=== PATIENT | male | born 1980 | race Hispanic/Latino ===

== ENCOUNTER 2018-07-13 11:14 | Inpatient (IN) | payer BC ==
--- NOTE | 2018-07-13 11:19 | ED PDOC ---
Arrival/HPI - General Time Seen by Provider: 07/13/18 11:16 Historian: Patient - History of Present Illness Narrative History of Present Illness (Text): 07/13/18 11:35 A 38 year old male, whose past medical history includes depression, presents to the emergency department for medical evaluation. Patient has been accepted for psychiatric admission by Dr. Hdez for anxiety. Patient denies any physical/symptomatic complaints. 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 Patient denies SI, HI, hallucinations and has no complaints at this time. Past Medical History - Provider Review Nursing Documentation Reviewed: Yes Family/Social History - Physician Review Nursing Documentation Reviewed: Yes Family/Social History: No Known Family HX Allergies/Home Meds Allergies/Adverse Reactions: Allergies No Known Allergies Allergy (Verified 07/13/18 11:36) Review of Systems - Physician Review All systems were reviewed & negative as marked: Yes - Review of Systems Constitutional: absent: Fevers, Night Sweats Respiratory: absent: SOB, Cough Cardiovascular: absent: Chest Pain, Palpitations Gastrointestinal: absent: Abdominal Pain, Diarrhea, Nausea, Vomiting Neurological: absent: Headache, Dizziness Physical Exam - Physical Exam Narrative Physical Exam (Text): Gen: NAD, cooperative, well appearing, non-toxic. Head: NCAT. HEENT: EYES: PERRL, EOMI, conjunctiva clear, MOUTH: moist MM, posterior pharynx without erythema or exudate, uvula midline. CV: (+) S1S2, RRR, no M/G/R LUNGS: CTA B/L, No W/R/R, good air movement Abd: Soft, NTTP, no guarding, rebound or rigidity. Neuro: AAO x 3, GCS 15, CN 2-12 intact, motor and sensory grossly intact, 5/5 muscle strength B/L UE's and LE's. ext: no cyanosis or edema Vital Signs Reviewed: Yes Temperature: Afebrile Blood Pressure: Normal Pulse: Regular Respiratory Rate: Normal Appearance: Positive for: Well-Appearing, Non-Toxic, Comfortable Pain Distress: None Mental Status: Positive for: Alert and Oriented X 3 Medical Decision Making ED Course and Treatment: 07/13/18 11:36 Impression: 38 year old male brought in to be medically cleared for psychiatric admission. Plan: --Admit Progress Notes: - Scribe Statement The provider has reviewed the documentation as recorded by the Maite Barr Provider Scribe Attestation: All medical record entries made by the Maite were at my direction and personally dictated by me. I have reviewed the chart and agree that the record accurately reflects my personal performance of the history, physical exam, medical decision making, and the department course for this patient. I have also personally directed, reviewed, and agree with the discharge instructions and disposition. Disposition/Present on Arrival - Present on Arrival Any Indicators Present on Arrival: Yes History of DVT/PE: No History of Uncontrolled Diabetes: No Urinary Catheter: No History of Decub. Ulcer: No History Surgical Site Infection Following: None - Disposition Have Diagnosis and Disposition been Completed?: Yes Diagnosis: Anxiety Disposition: HOSPITALIZED Disposition Time: 11:45 Patient Plan: Admission Condition: STABLE
[2018-07-13 11:32] VITALS: BMI 36.5
[2018-07-13 16:52] VITALS: O2SAT 100
[2018-07-13] MEDS ORDERED: Alum-Mag Hydrox-Simethicone Susp (30 mL) PO PRN (16:54)
[2018-07-13] MEDS ORDERED: Magnesium Hydroxide Susp 30 ml UD PO PRN (16:54)
--- NOTE | 2018-07-14 05:44 | PCM.BM ---
<Hossein Coffey - Last Filed: 07/14/18 05:42> Treatment Plan Problems - Problems identified on initial assessmt Anxiety Date Initiated: 07/13/18 Time Initiated: 22:40 Assessment reference: NA Status: Active Priority: 1 Altered sleep pattern Date Initiated: 07/13/18 Time Initiated: 22:50 Assessment reference: NA Status: Active Treatment assets and liabiliti Patient Assests: ADL independent, good support system, good interpersonal skills Patient Liabilities: relationship conflicts - Milieu Protocol Maintain good personal hygiene: daily Encourage regular showers, daily Remind patient to perform daily oral care, daily Assist patient to perform ADL's Conduct patient checks and document Observation sheet: Q15 minutes Maintain personal safety: daily Educate patient to report safety concerns to staff, daily Monitor environment for contraband/sharps Medication safety: Monitor for expected outcome, potential side effects: daily, Assess barriers to learning: daily, Assess readiness for medication education: daily Family Contact Family involvement: Family/SO is involved Family contact: Patient agrees to contact, Family has been contacted by patient Family contact name: Maria Luisa [phone] - Goals for Treatment Patient goals for treatment: To help me eliminate my anxiety Discharge/Continuing Care - Education Needs Education Needs: Patient Medication, Patient Coping Skills - Discharge Discharge Criteria: Normal sleep pattern, Ability to care for self <Everett Hdez - Last Filed: 07/14/18 11:46> - Diagnosis (1) Anxiety Status: Acute Interventions: * group, milieu and supportive tx * Appreciate f/u by Dr. Caceres/Dr. Mcmullen on 07/14/18 * Paxil 10 mg po HS for anxiety symptoms * Klonopin 1 mg po AMHS for anxiety * Sonata 10 mg HS prn: insomnia * Lamictal 100 mg po bid for mood control 07/14/18 11:46 <Shakira Sagastume - Last Filed: 07/17/18 16:09> Family Contact Family involvement: Family/SO is involved Family contact: Patient agrees to contact - Outside Agency [facility] Care involvment: Information-sharing Agency contact name: [facility]
[2018-07-14 07:50] LABS: BASO # 0.04 K/mm3 (0.0-2.0); BASO % 0.5 % (0.0-3.0); EOS # 0.3 (0.0-0.7); EOS % 3.1 % (1.5-5.0); HEMOGLOBIN 15.9 g/dL (14.0-18.0); LYMPH # 2.7 (1.2-3.4); LYMPH % 33.8 % (22.0-35.0); MEAN CELL VOLUME 87.3 fl (80.0-105.0); MEAN CORPUSCULAR HEMOGLOBIN 29.3 pg (25.0-35.0); MEAN CORPUSCULAR HGB CONC 33.6 g/dl (31.0-37.0); MONO # 0.7 (0.1-0.6); MONO % 8.2 % (1.0-6.0); RBC 5.42 10^6/uL (3.5-6.1); RED CELL DISTRIBUTION WIDTH 13.2 % (11.5-14.5)
[2018-07-14 08:01] LABS: ALB/GLOB RATIO 1.3 (1.1-1.8); ALBUMIN 4.4 g/dL (3.0-4.8); ALT/SGPT 21 U/L (7-56); AST/SGOT 28 U/L (17-59); BLOOD UREA NITROGEN 22 mg/dL (7-21); CALCIUM 9.7 mg/dL (8.4-10.5); GFR NON-AFRICAN AMERICAN > 60; GLUCOSE,FASTING 86 mg/dL (65-110); HDL CHOLESTEROL 42 mg/dL (29-60)
[2018-07-14 08:11] LABS: LDL CHOLESTEROL 123 mg/dL (0-129)
[2018-07-14 08:18] LABS: FREE T4 0.95 ng/dL (0.78-2.19)
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
--- NOTE | 2018-07-14 20:37 | CARD ---
APPROVED REPORT Date of service: 07/14/2018 EKG Measurement Heart [id number] <Conclusion> Normal sinus rhythm Leftward axis Normal ECG
--- NOTE | 2018-07-15 16:32 | PCM.PYCHPN ---
Psychiatric Progress Note - Psychiatric Progress Note Patient seen today, length of contact: 30 minutes Patient Chief Complaint: "medications are very helpful..." Problems Identified/Issues Discussed: current symptoms, meds risk, benefits, alternatives, previous psychiatric as well as medical history. Medical Problems: Patient denied any major medical issues Diagnostic Results: 07/14/18 07:30 07/14/18 07:32 Lab Results 07/14/18 07:32: Free T4 0.95, TSH 3rd Generation 1.85 07/14/18 07:32: Sodium 142, Potassium 4.1, Chloride 104, Carbon Dioxide 26, Anion Gap 16, BUN 22 H, Creatinine 1.0, Est GFR ( Amer) > 60, Est GFR (Non-Af Amer) > 60, Random Glucose 86, Fasting Glucose 86, Calcium 9.7, Total Bilirubin 0.6, AST 28, ALT 21, Alkaline Phosphatase 82, Total Protein 7.7, Albumin 4.4, Globulin 3.4, Albumin/Globulin Ratio 1.3, Triglycerides 78, Cholesterol 190, LDL Cholesterol Direct 123, HDL Cholesterol 42 07/14/18 07:32: RPR Nonreactive 07/14/18 07:32: Hemoglobin A1c 5.6 07/14/18 07:30: WBC 8.0, RBC 5.42, Hgb 15.9, Hct 47.3, MCV 87.3, MCH 29.3, MCHC 33.6, RDW 13.2, Plt Count 280, MPV 9.0, Neut % (Auto) 54.4, Lymph % (Auto) 33.8, [place] % (Auto) 8.2 H, Eos % (Auto) 3.1, Baso % (Auto) 0.5, Lymph # (Auto) 2.7, [place] # (Auto) 0.7 H, Eos # (Auto) 0.3, Baso # (Auto) 0.04, Absolute Neuts (auto) 4.32 Vital Signs Temp Pulse Resp BP Pulse Ox 07/15/18 07:22 97.6 F 78 20 121/68 07/14/18 16:26 84 114/74 07/14/18 07:00 97.5 F L 96 H 20 120/75 07/14/18 06:57 97.5 F L 96 H 20 120/75 07/14/18 04:41 16 07/13/18 16:50 98.1 F 85 18 130/89 100 07/13/18 15:12 98.7 F 79 18 120/76 99 07/13/18 11:30 98.2 F 81 18 117/81 98 DSM 5 Symptoms Update: as per 's report Patient is a 38 year old male with history of anxiety including panic disorder, no prior admissions, in outpatient therapy and medication management at a [facility] and [facility] who was transferred from [facility] after he presented to the ER via [facility] for palpitations and panic symptoms. Patient requested psychiatric evaluation because he felt that current prescribed medications are not helping his anxiety. Patient reported poor functioning and agreed to voluntary admission for evaluation and treatment of anxiety. Patient was seen and examined the treatment team meeting, patient presented with over for the speech, reported that she feels better, reported that his medications well, patient gave permission to talk to his family. Patient submitted 48-hour notice yesterday because patient doesn't feel he needs to be in a locked unit. Patient denies any depression, SI or AVH and presents as logical and coherent. Feels medications prescribed on the unit have been beneficial and denies any new side effects, discomfort or pain. As per nursing report pt does not exhibit any agitated or aggressive behavior. Impression: DSM 5 Diagnosis: MICHELLE Panic Disorder r/o Substance Induced Anxiety (UDS +opiates and patient reports "using adderall") Medication Change: Yes (Paxil increased) Medical Record Reviewed: Yes Consults ordered or reviewed: Medical consult appreciated, please see notes for more information. Mental Status Examination - Cognitive Function Orientation: Person, Place, Situation Memory: Intact Attention: Poor (improving) Concentration: Poor (improving) Association: WNL Fund of Knowledge: WNL - Mood Mood: Anxious - Affect Affect: Broad - Formal Thought Process Formal Thought Process: No Impairment - Suicidal Ideation Suicidal Ideation: No - Homicidal Ideation Homicidal Ideation: No Goal/Treatment Plan - Goal/Treatment Plan Need for Continued Stay: Remain at risks for inpatient hospitalization, Severe depression anxiety, Discharge may exacerbated symptoms, Severe functional impairment Progress Toward Problem(s) and Goals/Treatment Plan: group, milieu and supportive tx * Appreciate f/u by Dr. Caceres/Dr. Mcmullen on 07/14/18 * Paxil 20 mg po HS for anxiety symptoms * Klonopin 1 mg po AMHS for anxiety * Sonata 10 mg HS prn: insomnia * Lamictal 100 mg po bid for mood control * Family involvement Follow up on labs Will monitor closely Pt was educated about risk/benefits and alternatives of medications, coping strategies (safety plan, suicide prevention), relapse prevention, importance of follow up with psychiatrist and therapist, stay away from drugs/alcohol/smoking Patient submitted 48-hour notice yesterday, most likely this technical writer will discharge patient tomorrow after collateral information will be obtained from the family. Estimated Date of D/C: 07/16/18
[2018-07-16 07:28] VITALS: BP 110/65; PULSE 76; RESP 18; TEMP 97.9
--- NOTE | 2018-07-16 15:51 | PCM.PYCHDC ---
Mental Status Examination - Mental Status Examination Orientation: Person, Place, Situation, Time Memory: Intact Mood: Neutral Affect: Constricted (but reactive, mood congruent) Attention: WNL Concentration: WNL Association: WNL Fund of Knowledge: WNL Formal Thought Process: No Impairment Description of patient's judgement and insight: good insight and judgment Psychotic Thoughts and Behaviors: denied psychotic symptoms and does not present to be psychotic. Suicidal Ideation: No Current Homicidal Ideation?: No Plan: pt adamantly denied any intent or plan to harm self or others Discharge Summary - Discharge Note Reason for Hospitalization: uncontrolled anxiety Psychiatric History (includes Medical, Family, Personal Hx): see HPI Laboratory Data: 07/14/18 07:30 07/14/18 07:32 Lab Results 07/14/18 07:32: Free T4 0.95, TSH 3rd Generation 1.85 07/14/18 07:32: Sodium 142, Potassium 4.1, Chloride 104, Carbon Dioxide 26, Anion Gap 16, BUN 22 H, Creatinine 1.0, Est GFR ( Amer) > 60, Est GFR (Non-Af Amer) > 60, Random Glucose 86, Fasting Glucose 86, Calcium 9.7, Total Bilirubin 0.6, AST 28, ALT 21, Alkaline Phosphatase 82, Total Protein 7.7, Albumin 4.4, Globulin 3.4, Albumin/Globulin Ratio 1.3, Triglycerides 78, Cholesterol 190, LDL Cholesterol Direct 123, HDL Cholesterol 42 07/14/18 07:32: RPR Nonreactive 07/14/18 07:32: Hemoglobin A1c 5.6 07/14/18 07:30: WBC 8.0, RBC 5.42, Hgb 15.9, Hct 47.3, MCV 87.3, MCH 29.3, MCHC 33.6, RDW 13.2, Plt Count 280, MPV 9.0, Neut % (Auto) 54.4, Lymph % (Auto) 33.8, [place] % (Auto) 8.2 H, Eos % (Auto) 3.1, Baso % (Auto) 0.5, Lymph # (Auto) 2.7, [place] # (Auto) 0.7 H, Eos # (Auto) 0.3, Baso # (Auto) 0.04, Absolute Neuts (auto) 4.32 Vital Signs Temp Pulse Resp BP Pulse Ox 07/16/18 07:00 97.9 F 76 18 110/65 07/15/18 16:00 84 117/71 07/15/18 07:22 97.6 F 78 20 121/68 07/14/18 16:26 84 114/74 07/14/18 07:00 97.5 F L 96 H 20 120/75 07/14/18 06:57 97.5 F L 96 H 20 120/75 07/14/18 04:41 16 07/13/18 16:50 98.1 F 85 18 130/89 100 07/13/18 15:12 98.7 F 79 18 120/76 99 07/13/18 11:30 98.2 F 81 18 117/81 98 Consultations:: List each consultation separately and include: 1. Reason for request. 2. Findings. 3. Follow-up Consultations: Medical consult appreciated, please see notes for more information. Summary of Hospital Course include:: 1. Description of specific treatment plan utilized for patients during their course of treatmen. 2. Summarize the time- course for resolution of acute symptoms and/or regressed behaviors. 3. Describe issues identified and worked on during hospitalization. 4. Describe medication utilized. 5. Describe medical problems identified and treated. 6. Reassessment of suicide risk Summary of Hospital Course: as per 's report at the time of admission: Patient is a 38 year old male with history of anxiety including panic disorder, no prior admissions, in outpatient therapy and medication management at a [facility] and [facility] who was transferred from [facility] after he presented to the ER via [facility] for palpitations and panic symptoms. Patient requested psychiatric evaluation because he felt that current prescribed medications are not helping his anxiety. Patient reported poor functioning and agreed to voluntary admission for evaluation and treatment of anxiety. 07/16/18: Patient was seen and examined the treatment team meeting by this story writer, patient presented with over for the speech, reported that she feels better, reported that his medications well, patient gave permission to talk to his family. Patient submitted 48-hour notice yesterday because patient doesn't feel he needs to be in a locked unit. Patient denies any depression, SI or AVH and presents as logical and coherent. Feels medications prescribed on the unit have been beneficial and denies any new side effects, discomfort or pain. As per nursing report pt does not exhibit any agitated or aggressive behavior. collaterals were obtained from pt's fiance by PAULA. Fiance did not express any concerns about pt's safety, willing to accept pt back home. pt was stabilized on the following meds: klonopin 1mg po bid for anxiety Paxil 20 mg po HS for anxiety symptoms Sonata 10 mg HS prn: insomnia Lamictal 100 mg po bid for mood control pt tolerated meds well, no side effects observed or reported, AIMS 0, no EPS. Overall pt improved significantly, less anxious, less depressed, has realistic future oriented plans, pt also does not appear to be psychotic, or anxious, pt was socially appropriate, no behavioral issues, pts insight improved as well and soon pt deemed to be ready for discharge. At the time of the discharge patient pose no imminent danger to self or others, will be following up at Dr. Bowen at the [facility], information about follow up appointment, time and address provided to the pt, (see SW note for more detailed information). It is a patient responsibility to follow up with outpatient clinic, PMD as well as specialists In case patient will need to obtain results of studies pending at discharge, patient was provided with contact information of Psychiatric Inpatient unit [phone] as well as Medical Record Department [phone], as well as [facility] team [phone]. pt denies smoking, denied drinking, denied using drugs. pt was provided with prescriptions (see medication reconciliation form) Pt was educated about safety plan in case of worsening of symptoms or in case of suicidal or homicidal ideation call 911 or go to the nearest ER, also was educated to take meds as prescribed and stay away from drugs, pt verbalized understanding. - Diagnosis (1) Mood disorder Status: Acute Priority: High (2) Anxiety Status: Acute Priority: High - Final Diagnosis (DSM 5) Condition upon Discharge: GOOD DSM 5: r/o bipolar disorder r/o panic disorder Disposition: HOME/ ROUTINE Follow-up Treatment Plan: group, milieu and supportive tx * Appreciate f/u by Dr. Caceres/Dr. Mcmullen on 07/14/18 * Paxil 20 mg po HS for anxiety symptoms * Klonopin 1 mg po AMHS for anxiety * Sonata 10 mg HS prn: insomnia * Lamictal 100 mg po bid for mood control * Family involvement Follow up on labs Will monitor closely Pt was educated about risk/benefits and alternatives of medications, coping strategies (safety plan, suicide prevention), relapse prevention, importance of follow up with psychiatrist and therapist, stay away from drugs/alcohol/smoking Patient submitted 48-hour notice yesterday, most likely this story writer will discharge patient tomorrow after collateral information will be obtained from the family. Prescriptions/Medication Reconciliation: clonazePAM [Klonopin] 1 mg PO AMHS #30 tab lamoTRIgine [Lamictal] 100 mg PO BID #30 tab Paroxetine HCl [Paxil] 20 mg PO HS #14 tablet Zaleplon [Sonata] 10 mg PO HS #14 capsule - Smoking Cessation Smoking Cessation Medication prescribed: No Reason for not providing: pt denied smoking - Antipsychotic Medications Pt discharged on 2 or more routine antipsychotic medications: No
== END 2018-07-16 12:22 | disposition home or self-care (01) | DRG 885 ==
LOC: ED 11:14 → ERH 11:55 → PSYC 16:43
PROVIDERS: ADMIT Psychiatry & Neurology Psychiatry; ATTEND Psychiatry & Neurology Psychiatry
DX: F39 Unspecified mood [affective] disorder (principal); F41.1 Generalized anxiety disorder; F41.0 Panic disorder [episodic paroxysmal anxiety]